=== PATIENT | female | born 1935 | race Caucasian/White ===

== ENCOUNTER 2021-07-25 11:59 | Day surgery (SDC) | payer OTHER ==
--- NOTE | 2021-07-22 14:30 | RAD REPORT ---
EXAM DESCRIPTION: Bert Downs And Lady (2 Views)07/22/2021 2:23 pm CLINICAL HISTORY: Preop for cardiac catheterization COMPARISON: None FINDINGS: The lungs appear clear of acute infiltrate. The heart is borderline enlarged. Pacemaker leads in place Moderate compression deformity involves a lower thoracic vertebral body
[2021-07-22 15:13] LABS: Absolute Lymphocytes (CBC) 1.9 K/uL (0.7-4.9); Basophils % 0.9 % (0-1.3); Hematocrit 42.2 % (36.0-45.0); Lymphocytes % 26.2 % (15.3-44.8); MPV 6.9 fL (7.6-11.3); RBC Red Blood Cell Count 4.59 M/uL (3.86-4.86)
[2021-07-22 15:16] LABS: Protime INR 0.89
[~2021-07-25 11:59] MED LIST: HEPA 1000U/500MLS 2,000 UNIT/1,000 ML BAG IV ONE; LIDOCAINE 1% 20 ML MDV ONE
[2021-07-25] MEDS ORDERED: NA CHLORIDE 0.9% 500 ML ONE (13:19)
[2021-07-25] MEDS ORDERED: ATROPINE SULF 1 MG/10 ML SYR IV ONE (13:35)
[2021-07-25] MEDS ORDERED: FENTANYL CITR 100 MCG/2 ML ONE (13:35)
[2021-07-25] MEDS ORDERED: VERAPAMIL HCL 10 MG/4 ML VIAL IV ONE (13:35)
[2021-07-25] MEDS ORDERED: HEPARIN 5000 UNIT/ML 1 ML VIAL ONE (13:35)
[2021-07-25] MEDS ORDERED: MIDAZOLAM HCL 2 MG/2 ML INJ ONE (13:35)
[2021-07-25] MEDS ORDERED: CLOPIDOGREL 75 MG TABLET ONE (14:09)
[2021-07-25] MEDS ORDERED: REGADENOSON 0.4 MG/5 ML SYR IV ONE ×2 (14:17→14:26)
[2021-07-25] MEDS ORDERED: ONDANSETRON 4 MG/2 ML VIAL ONE ×2 (14:26→20:16)
[2021-07-25] MEDS ORDERED: HEPA 1000U/500MLS 1,000 UNIT/500 ML BAG IV ONE (14:33)
[2021-07-25] MEDS ORDERED: HYDRALAZINE HCL 20 MG/ML VIAL ONE (19:25)
[2021-07-25 21:02] VITALS: O2SAT 95
[2021-07-25 21:38] VITALS: BMI 29.7
[2021-07-26] MEDS ORDERED: NITROGLYCERIN 0.4 MG/TAB SL PRN (00:13)
[2021-07-26] MEDS ORDERED: HYDRALAZINE HCL 20 MG/ML VIAL IV PRN (00:13)
[2021-07-26] MEDS ORDERED: ACETAMINOPHEN 325 MG TABLET PO PRN (00:13)
[2021-07-26] MEDS ORDERED: ONDANSETRON 4 MG/2 ML VIAL IV PRN (00:13)
--- NOTE | 2021-07-26 02:15 | OP ---
Date of Procedure: 07/25/2021 Surgeon: JOSE MIRAMONTES Procedure Performed: 1.Selective coronary angiogram. 2.FFR of the LAD is severe mid to distal disease, which was significant at 0.75, status post PCI usi ng 2.75 x 60 mm Synergy drug-eluting stent overlapped distally using a 2.75 x 24 mm Synergy drug-elut ing stent, post dilated the whole stent rbtmqjru-gx-orizpo edge using a 3.0 x 15 mm NC balloon. 3.PCI of the mid LAD as outlined above. 4.PCI of proximal LAD, probably catheter induced dissection, used a 4.0 x 24 mm Synergy drug-elutin g stent overlapped with the mid-LAD stent and all the way to the ostium to seal the dissections. 5.FFR of the OM1 mid moderate stenosis, was insignificant at 0.87. Complications: None. Bleeding: Less than 10 mL. Description Of Procedure: After risks, benefits, and alternatives were explained, the patient agreed to the procedure and signed informed consent. Patient was brought in the Cardiac Catheterization La boratory, prepped and draped in usual sterile fashion. Then, access to the right radial artery using pediatric micropuncture kit to place a 6-Citizen [place] slender sheath and I took a 5-[place] Schulter 4.[address] into the aortic root, engaged left main and RCA, took standard views and then moved to the interv entional part. Intervention Details: We gave 600 Plavix and systemic heparin to ensure ACT level above 250. Then, I took the Comet wire into the aortic root to equalize pressures and this was done through the 6-Fren ch Ikari 3.5 left, that engaged the left main and then we took the wire across the stenosis and place d into the distal LAD. FFR was done and it was significant at 0.76. The artery is diffusely disease d. Initially attempted to stent just distal to the stent, where it appears to be the tightness and t he tight spot, and then there was another area mid to distal LAD that was significantly tight as well , so we overlapped it with another stent 2.75 x 24 mm and then post dilated the whole stent proximal to the distal edge using 0 x 15 mm NC balloon. Upon reviewed, there was dissection in the proximal portion of the LAD. So, placed a 4.0 x 24 mm Synergy drug-eluting stent to cover the dissection, ove rlapped with the mid LAD stent with excellent end results and no complications. The Comet wire was t aken into the OM2 branch and FFR was done. It was insignificant at 0.87. Wires and catheter were re moved and sheath was removed and placed TR band with good hemostasis. Findings: 1.Left main luminal irregularities. It is large. 2.LAD, proximal 70%, status post PCI 4.0 x 24 mm Synergy drug-eluting stent. Then, patent mid LAD s tent with a distal edge significant stenosis. Positive FFR 0.76, status post PCI as outlined above s uccessfully. The diagonal 1 branch has a proximal 99% stenosis with a very small vessel. 3.Left circumflex is a codominant circulation. OM1 is a large vessel with ostial to proximal 80% st enosis and the OM2 has a stent that is patent. Distal to the stent is an area of 60% stenosis and FF R was 0.87, which is insignificant. The circumflex itself is very small. 4.RCA, mid long 80% lesion. Conclusion: Severe multivessel coronary artery disease as above, status post percutaneous coronary i ntervention of the LAD today. Plan: Staged PCI of OM1 and RCA in 4-6 weeks. To continue aspirin and Plavix and high-dose statin. SR/MODL Voice ID: [id number] Report ID: [id number]
[2021-07-26] MEDS ORDERED: CLOPIDOGREL 75 MG TABLET PO SCH (09:00)
[2021-07-26] MEDS ORDERED: ASPIRIN 81 MG CHEWABLE TABLET PO SCH (09:00)
[2021-07-26 09:46] VITALS: BP 153/70; TEMP 97.8
--- NOTE | 2021-07-27 12:49 | PN ---
Date of Progress Note: 07/26/2021 Ms. Willingham, 86, underwent an intervention yesterday by Dr. Alvarado to the right wrist right radial tom ry. She had a stent of her LAD and she needs more stents down the road for RCA I believe. She has a history of Myrna-Danlos syndrome. She developed significant bleeding from her right wrist, but maxim t had stopped since 11 o'clock last night. Today, her arm is bruised with ecchymosis but no complain t of pain. She has great radial pulse. I am comfortable with her going home on her home medication. She takes Nexium and she does not want to change this. I prefer to put her on Brilinta 90 b.i.d. i nstead of her Plavix, but she is coming to see Dr. Alvarado in the next day or 2. ITA/MEGAN Voice ID: [id number] Report ID: [id number]
== END 2021-07-26 10:13 | disposition home or self-care (01) ==
LOC: CCL 11:59 → 2ND 20:56 → CCL 07-26 10:13
PROVIDERS: ATTEND Internal Medicine
DX: I25.110 Atherosclerotic heart disease of native coronary artery with unstable angina pectoris (principal); I73.9 Peripheral vascular disease, unspecified; I10 Essential (primary) hypertension; E78.5 Hyperlipidemia, unspecified; E11.9 Type 2 diabetes mellitus without complications; Z95.0 Presence of cardiac pacemaker; Z87.891 Personal history of nicotine dependence; Z88.9 Allergy status to unspecified drugs, medicaments and biological substances; Z20.822 Contact with and (suspected) exposure to COVID-19
CPT/HCPCS: 93005; 85025; 80048; 36415 ×2; 85610; 85730 ×2; 71046; 93454; 93571; 93572; U0003; C1893; C1725; C9600; J0360; J1644 ×3; J2250; J3010; J2785 ×2; J7040; J2405 ×2

== ENCOUNTER 2021-10-09 06:45 | Emergency (ER) | payer OTHER ==
--- OUTSIDE RECORDS SUMMARY | 2021-10-09 06:47 | XMS REPORT | Continuity of Care Document ---
:[address] [facility] t Address [address] [place] [address] Care Team Providers Name Role Phone Jenny Attending Clinician Unavailable Payers Payer Name Policy Type Policy Number Effective Date Expiration Date S ource Problems This patient has no known problems. Allergies, Adverse Reactions, Alerts This patient has no known allergies or adverse reactions. Medications This patient has no known medications. Procedures This patient has no known procedures. Encounters Start End Encounter Admission Attending Care Care Encounter Source Date/Time Date/Time Type Type Clinicians Facility Department ID 2021-10-18 Inpatient SAE Alvarado OUTD [id number] [facility] 12:45:00 Gonzalez [id number] [facility] 2021-10-14 Inpatient SAE Kim OUTD [id number] [facility] 13:00:00 Gonzalez [id number] [facility] Results This patient has no known results.
--- NOTE | 2021-10-09 08:13 | EDPHYS ---
Physician Documentation [facility] Name: Viky Willingham Age: 86 yrs Sex: Female : 1935 Arrival Date: 10/09/2021 Time: 06:54 Bed 5 Private MD: ED Physician Tim Marquez HPI: 10/09 06:56 This 86 yrs old Female presents to ER via Unassigned with complaints of ankle kb pain s/p fall. 06:56 Details of fall: The patient fell from an upright position, while walking. Onset: The kb symptoms/episode began/occurred just prior to arrival. Associated injuries: The patient sustained anterior aspect of left ankle, painful injury, swelling. Severity of symptoms: At their worst the symptoms were moderate, in the emergency department the symptoms are unchanged. The patient has not experienced similar symptoms in the past. The patient has not recently seen a physician. Pt reports she was getting out of bed to go to the restroom and her leg gave out causing her to fall. Reports pain to left ankle only. Denies hip pain, hitting head, loc, or any other pain. Historical: - Allergies: 07:03 Demerol; bs2 07:03 Morphine; bs2 07:03 Codeine; bs2 07:03 Amoxicillin; bs2 07:03 Kepbqfe-Dhu-Ghz Reductase Inhibitors; bs2 - Immunization history:: Adult Immunizations up to date, Client reports receiving the 2nd dose of the Covid vaccine. - Social history:: Smoking status: Patient denies any tobacco usage or history of. ROS: 06:55 Constitutional: Negative for fever, chills, and weight loss. kb 06:55 MS/extremity: Positive for pain, swelling, tenderness, of the anterior aspect of left ankle and dorsum of left foot. 06:55 All other systems are negative. Exam: 06:55 Constitutional: This is a well developed, well nourished patient who is awake, alert, kb and in no acute distress. Head/Face: Normocephalic, atraumatic. ENT: Moist Mucous membranes Respiratory: Respirations even and unlabored. No increased work of breathing, no retractions or nasal flaring. Skin: Warm, dry with normal turgor. Normal color. Neuro: Awake and alert, GCS 15, oriented to person, place, time, and situation. Moves all extremities. Normal gait. Psych: Awake, alert, with orientation to person, place and time. Behavior, mood, and affect are within normal limits. 06:55 Musculoskeletal/extremity: Extremities: grossly normal except: noted in the dorsum of left foot and anterior aspect of left ankle: pain, swelling, tenderness, noted in the left knee: tenderness, ROM: Circulation is intact in all extremities. Sensation intact. Vital Signs: 06:55 BP 152 / 68 LA Sitting (auto/lg); Pulse 79 MON; Resp 18 S; Temp 97.5(O); Pulse Ox 100% bs2 on R/A; Weight 81.65 kg (R); Height 5 ft. 7 in. (170.18 cm) (R); Pain 5/10; 08:36 BP 139 / 70; Pulse 69; Resp 17; Pulse Ox 98% on R/A; jt3 06:55 Body Mass Index 28.19 (81.65 kg, 170.18 cm) bs2 MDM: 06:54 Patient medically screened. kb 06:55 Differential diagnosis: fracture, sprain, strain. Data reviewed: vital signs, nurses kb notes. 06:57 ED course: Tenderness to knee, tib fib, ankle and foot on left side. No tenderness to kb hip or femur. Pt denies hitting head. No other signs of trauma. . 08:12 Data reviewed: I have discussed the patient's presentation/case with the attending Emergency Department Physician;. Data interpreted: Pulse oximetry: on room air is 100 %. Interpretation: normal. Counseling: I had a detailed discussion with the patient and/or guardian regarding: the historical points, exam findings, and any diagnostic results supporting the discharge/admit diagnosis, radiology results, the need for outpatient follow up, a orthopedic surgeon, to return to the emergency department if symptoms worsen or persist or if there are any questions or concerns that arise at home. 10/09 06:54 Order name: Tib Fib Left XRAY; Complete Time: 08:18 kb 10/09 06:54 Order name: Foot Left 3 View XRAY; Complete Time: 08:35 kb 10/09 08:11 Order name: Walking boot; Complete Time: 08:34 kb Administered Medications: 08:34 Not Given (Patient Refused): Ibuprofen 800 mg PO once jt3 Disposition Summary: 10/09/21 08:13 Discharge Ordered Location: Home kb Condition: Stable kb Diagnosis - Displaced fracture distal left fibula kb Followup: kb - With: Emergency Department - When: As needed - Reason: Worsening of condition Followup: kb - With: Private Physician - When: 2 - 3 days - Reason: Recheck today's complaints, Continuance of care, Re-evaluation by your physician Discharge Instructions: - Discharge Summary Sheet kb - Tibial and Fibular Fractures kb Forms: - Medication Reconciliation Form kb - Thank You Letter kb - Antibiotic Education kb - Prescription Opioid Use kb Signatures: Dispatcher [employer] EDAislinn Mcnair, SERVICER TRAVEL TRAILERS-C SERVICER TRAVEL TRAILERS-Suze Velasquez, RN RN bs2 Casa Quinones RN jt3
--- NOTE | 2021-10-09 08:13 | ER ---
Nurse's Notes [facility] Name: Viky Willingham Age: 86 yrs Sex: Female : 1935 Arrival Date: 10/09/2021 Time: 06:54 Bed 5 Private MD: Diagnosis: Displaced fracture distal left fibula Presentation: 10/09 06:55 Chief complaint: Patient states: fall twisted LT ankle, pain to top of foot and ankle. bs2 Coronavirus screen: Vaccine status: Patient reports receiving the 2nd dose of the covid vaccine. Ebola Screen: No symptoms or risks identified at this time. Initial Sepsis Screen: Does the patient meet any 2 criteria? No. Patient's initial sepsis screen is negative. Does the patient have a suspected source of infection? No. Patient's initial sepsis screen is negative. Risk Assessment: Do you want to hurt yourself or someone else? Patient reports no desire to harm self or others. Onset of symptoms was October 09, 2021. 06:55 Method Of Arrival: EMS: [facility] bs2 06:55 Acuity: CARLOS 4 bs2 Triage Assessment: 06:55 General: Appears in no apparent distress. obese, well groomed, well developed, well bs2 nourished, Behavior is calm, cooperative, appropriate for age. Pain: Complains of pain in left knee and dorsum of left foot and anterior aspect of left ankle. EENT: No deficits noted. Neuro: No deficits noted. Cardiovascular: No deficits noted. Respiratory: No deficits noted. GI: No deficits noted. : No deficits noted. Derm: No deficits noted. Musculoskeletal: Reports pain in left knee and dorsum of left foot and anterior aspect of left ankle. Historical: - Allergies: 07:03 Demerol; bs2 07:03 Morphine; bs2 07:03 Codeine; bs2 07:03 Amoxicillin; bs2 07:03 Zifhphm-Hmw-Fcz Reductase Inhibitors; bs2 - Immunization history:: Adult Immunizations up to date, Client reports receiving the 2nd dose of the Covid vaccine. - Social history:: Smoking status: Patient denies any tobacco usage or history of. Screenin:58 Abuse screen: Denies threats or abuse. Denies injuries from another. Nutritional bs2 screening: No deficits noted. Tuberculosis screening: No symptoms or risk factors identified. Fall Risk None identified. Assessment: 06:58 General: Appears in no apparent distress. distressed, comfortable, obese, Behavior is bs2 calm, cooperative, appropriate for age. Pain: Complains of pain in left knee and dorsum of left foot and anterior aspect of left ankle Pain currently is 5 out of 10 on a pain scale. Musculoskeletal: Circulation, motion, and sensation intact. Capillary refill < 3 seconds, Range of motion: limited in left knee and left ankle Swelling present in left foot and left knee and anterior aspect of left ankle Tenderness present in left knee and dorsum of left foot and anterior aspect of left ankle Reports pain in left knee and dorsum of left foot and anterior aspect of left ankle. 07:16 Reassessment: RN coming on shift introduced self to patient. Pt. is alert and oriented jt3 x4 on arrival. Endorses pain in left leg. Upon examination, left leg is swollen at the left ankle and knee. The ankle pain and swelling is new and acute. The knee is pain and swelling that has developed over the last 3 weeks. Capillary refill less than 3 seconds. 07:26 Musculoskeletal: Circulation, motion, and sensation intact. Capillary refill < 3 jt3 seconds, Swelling present in left leg and left ankle and left knee. 08:35 Reassessment: Pt. stated she did not need the 800mg Ibuprofen and was not in pain at jt3 this time. Patient's daughter is on her way to pick her up. Patient denies pain at this time. Vital Signs: 06:55 BP 152 / 68 LA Sitting (auto/lg); Pulse 79 MON; Resp 18 S; Temp 97.5(O); Pulse Ox 100% bs2 on R/A; Weight 81.65 kg (R); Height 5 ft. 7 in. (170.18 cm) (R); Pain 5/10; 08:36 BP 139 / 70; Pulse 69; Resp 17; Pulse Ox 98% on R/A; jt3 06:55 Body Mass Index 28.19 (81.65 kg, 170.18 cm) bs2 ED Course: 06:54 Patient arrived in ED. kb 06:54 Aislinn Wakefield FNP-C [facility] kb 06:54 Tim Marquez MD is Attending Physician. kb 06:55 Suze Rice, RN is Primary Nurse. bs2 06:55 Arm band placed on left wrist. bs2 06:57 Triage completed. bs2 06:58 Patient has correct armband on for positive identification. Bed in low position. Call bs2 light in reach. Side rails up X2. Adult w/ patient. Pulse ox on. NIBP on. Door closed. Noise minimized. Warm blanket given. 07:49 Tib Fib Left XRAY In Process Unspecified. EDMS 07:49 Foot Left 3 View XRAY In Process Unspecified. EDMS 08:36 No provider procedures requiring assistance completed. Patient did not have IV access jt3 during this emergency room visit. 08:40 Ortho shoe applied to left foot. Ortho boot applied to left foot/leg. Sensation intact. jt3 Capillary refill less than 3 seconds. Pt. states the boot is not causing pain and is tolerable. Administered Medications: 08:34 Not Given (Patient Refused): Ibuprofen 800 mg PO once jt3 Outcome: 08:13 Discharge ordered by . kb 08:35 Discharged to home via wheelchair. jt3 08:35 Condition: good 08:35 Discharge instructions given to patient, Instructed on discharge instructions, follow up and referral plans. Demonstrated understanding of instructions. 09:13 Patient left the ED. iw Signatures: Dispatcher [employer] Aislinn Nguyen, CABLE MOCK UP ASSEMBLER-C CABLE MOCK UP ASSEMBLER-Sarah Lr, RN Suze Chapman RN RN bs2 Casa Quinones RN RN jt3
--- NOTE | 2021-10-09 08:14 | RAD REPORT ---
EXAM DESCRIPTION: RAD - Tib Fib Left - 10/09/2021 7:50 am CLINICAL HISTORY: PAIN COMPARISON: Foot Left 3 View dated 10/09/2021 FINDINGS: Obliquely oriented distal fibular fracture. No other fractures identified. No other fractu re of the tibia or fibula is identified. IMPRESSION: Obliquely oriented distal fibular fracture. Consider dedicated ankle radiograph to sho r assess the ankle mortise.
--- NOTE | 2021-10-09 08:28 | RAD REPORT ---
EXAM DESCRIPTION: RAD - Foot Left 3 View - 10/09/2021 7:50 am CLINICAL HISTORY: PAIN COMPARISON: No comparisons FINDINGS: No left foot fractures identified. Distal fibular fracture is partially imaged. IMPRESSION: No acute osseous abnormality involving the left foot. Partially imaged distal fibular fr acture .
[2021-10-09 09:19] VITALS: TEMP 97.5
[2021-10-09 09:20] VITALS: BP 139/70; O2SAT 98
== END 2021-10-09 09:13 | disposition home or self-care (01) ==
LOC: ER 06:45
DX: S82.832A Other fracture of upper and lower end of left fibula, initial encounter for closed fracture (principal); W18.30XA Fall on same level, unspecified, initial encounter; Y93.01 Activity, walking, marching and hiking; Z88.1 Allergy status to other antibiotic agents; Z88.5 Allergy status to narcotic agent; Z88.8 Allergy status to other drugs, medicaments and biological substances
CPT/HCPCS: 99284

== ENCOUNTER 2022-01-26 10:49 | Day surgery (SDC) | payer OTHER ==
[2022-01-23 16:20] LABS: Absolute Lymphocytes (CBC) 1.3 K/uL (0.7-4.9); Hematocrit 39.2 % (36.0-45.0); Lymphocytes % 23.6 % (15.3-44.8); RBC Red Blood Cell Count 4.36 M/uL (3.86-4.86)
[2022-01-23 16:22] LABS: Protime INR 0.85
--- NOTE | 2022-01-23 16:43 | RAD REPORT ---
EXAM DESCRIPTION: Bert Downs And Lat (2 Views)01/23/2022 3:49 pm CLINICAL HISTORY: Preop/hypertension COMPARISON: 2020 FINDINGS: The lungs appear clear of acute infiltrate. The heart is mildly enlarged. Pacemaker leads are in place. The aorta is tortuous/ectatic. Old compression deformity lower thoracic vertebral body IMPRESSION: No acute abnormalities displayed
[2022-01-23 17:07] LABS: Potassium 4.1 mmol/L (3.5-5.1)
--- NOTE | 2022-01-24 09:11 | EKG ---
Test Date: 2022-01-23 Test Time: 15:30:13 Casino Assistant Manager: ROSE MEASUREMENT RESULTS: Intervals: Rate: 71 IN: 234 QRSD: 128 QT: 450 QTc: 489 Ethel: P: 63 IN: 234 QRS: 2 T: 256 INTERPRETIVE STATEMENTS: Electronic atrial pacemaker Left bundle branch block Abnormal ECG Compared to ECG 07/22/2021 12:57:28 Left bundle-branch block now present AV dual-paced complex(es) or rhythm no longer present Electronically Signed On 01-24-22 09:09:15 MASTER MERCHANDISER by Lawrence Rubin
[~2022-01-26 10:49] MED LIST changes: +ASPIRIN 325 MG TAB ONE; +ATROPINE SULF 1 MG/10 ML SYR IV ONE; +CLOPIDOGREL 75 MG TABLET ONE; +FENTANYL CITR 100 MCG/2 ML ONE; +HEPARIN 10,000 UNIT/10 ML VIAL IV ONE; +HEPARIN 5000 UNIT/ML 1 ML VIAL ONE; -LIDOCAINE 1% 20 ML MDV ONE; +MIDAZOLAM HCL 2 MG/2 ML INJ ONE; +NA CHLORIDE 0.9% 500 ML ONE; +NITROGLYCERIN/D5W 25 MG/250 ML BTL IV ONE; +TICAGRELOR 90 MG TABLET PO ONE; +VERAPAMIL HCL 10 MG/4 ML VIAL IV ONE
[2022-01-26 13:44] VITALS: TEMP 97
[2022-01-26] MEDS ORDERED: ACETAMINOPHEN 325 MG TABLET ONE (16:47)
[2022-01-26 17:20] VITALS: O2SAT 94
[2022-01-26 17:59] VITALS: BP 127/88
--- NOTE | 2022-01-27 00:06 | OP ---
Date of Procedure: 01/26/2022 Surgeon: JOSE MIRAMONTES Procedure Performed: Peripheral angiogram, distal aortogram with runoff. Indication: Severe PAD. Access: Right radial artery 6-[place] closed with TR band. Complications: None. Bleeding: Less than 10 mL. Total Sedation Time: 20 minutes. Description Of Procedure: After risks, benefits, and alternatives were explained, the patient agreed to proceed and signed informed consent. The patient was brought into cardiac catheterization labora tory, prepped and draped in usual sterile fashion. Then, I gave fentanyl and Versed in incremental d oses to achieve adequate moderate sedation. Then, we accessed right radial artery using pediatric mi cropuncture kit and placed a 6-[place] slender sheath and then took a long pigtail catheter over wire into the distal aorta and performed this aortogram with runoff all the way to the feet. I then remov ed the catheter and sheath and placed TR band with good hemostasis. Findings: 1.Distal aorta, widely patent. 2.Right and left common iliac arteries that have about 20% to 30% focal stenosis. 3.Right and left common femoral arteries have diffuse 10% to 20% stenosis. 4.The left SFA is widely patent with diffuse multiple areas of 30% stenosis. Profunda is patent. 5.The right SFA has diffuse proximal 30% to 40% and then focal 70% and then 95% to 99% stenosis with slow flow and then followed by diffuse 80% stenosis. The profunda on the right side is patent. 6.Vfumc-beu-oovf flow on the left side is good with diffuse 30% to 40% stenosis in the 3-vessel runo ff and on the right side, very sluggish low flow and could not see the arteries due to the severity o f the SFA stenosis. Conclusion: Severe right SFA stenosis, diffuse and heavily calcified. Plan: Take the patient to higher level of care facility at [facility]. We will plan to access the l eft femoral artery and come up and over to the right SFA and do shock-wave lithotripsy and then follo wed by a drug-coated balloon angioplasty. Meanwhile, continue Brilinta and aspirin. SR/MODL Voice ID: [id number] Report ID: [id number]
== END 2022-01-26 18:00 | disposition home or self-care (01) ==
LOC: CCL 10:49
PROVIDERS: ATTEND Internal Medicine
DX: I70.203 Unspecified atherosclerosis of native arteries of extremities, bilateral legs (principal); I25.10 Atherosclerotic heart disease of native coronary artery without angina pectoris; I10 Essential (primary) hypertension; E11.9 Type 2 diabetes mellitus without complications; E78.5 Hyperlipidemia, unspecified; Z87.891 Personal history of nicotine dependence; Z88.0 Allergy status to penicillin; Z88.6 Allergy status to analgesic agent; Z88.8 Allergy status to other drugs, medicaments and biological substances; Z20.822 Contact with and (suspected) exposure to COVID-19
CPT/HCPCS: 93005; 85025; 80048; 36415; 85610; 85730; 84425; 71046; 36200; 75630 ×2; U0003; C1893; J1644 ×2; J2250; J3010; J7040

== ENCOUNTER 2022-10-30 09:37 | Emergency (ER) | payer OTHER ==
--- OUTSIDE RECORDS SUMMARY | 2022-10-30 09:41 | XMS REPORT | Continuity of Care Document ---
:1935 Author Organization [facility] t Address [address] [place] [place] [address] Care Team Providers Name Role Phone Gonzalez Alvarado Attending Clinician Unavailable Nasir Mustafa Attending Clinician Unavailable Gonzalez Alvarado Admitting Clinician Unavailable [place] Admitting Clinician Unavailable Payers Payer Name Policy Type Policy Number Effective Date Expiration Date S ource Problems This patient has no known problems. Allergies, Adverse Reactions, Alerts Allergy Allergy Status Severity Reaction(s) Onset Inactive Treating Comm ents Source Name Type Date Date Clinician morphine DA Active U NAUSEA 2020-11 [facility] 2-10 Clear 00:00: Elkins 00 [facility] BELLPEPP DA Active MO STOMACH PAIN 2020-11 HC A ERS 2-10 Clear 00:00: Elkins 00 [facility] metoclop DA Active U ANXIOUS H[facility] ramide 7-25 Clear HCl 00:00: Elkins [facility] Statins- DA Active U MUSCLE HCA HMG-CoA PAIN,DIZZY 7-25 Clear Reductas 00:00: Elkins e 00 [facility] codeine DA Active [place] NAUSEA HCA 4-30 Clear 00:00: Elkins 00 [facility] Medications This patient has no known medications. Procedures Procedure Date / Time Performed Performing Clinician Kathy bernabe [id number] 2021-11-09 00:00:00 TIFFANIE DYSON [facility] [id number] 2021-11-08 00:00:00 IVANA DYSON [facility] [id number] 2021-11-08 00:00:00 IVANA DYSON [facility] [id number] 2021-11-08 00:00:00 IVANA [facility] Encounters Start End Encounter Admission Attending Care Care Encounter Source Date/Time Date/Time Type Type Clinicians Facility Department ID 2022-03-27 Inpatient KIEL KimCL OUTD [id number] [facility] 09:30:00 Gonzalez 67 [facility] 2021-12-21 Outpatient STLMLC STLC [id number] Common 14:33:17 [facility] 2021-11-04 Inpatient KIEL KimCL OUTD [id number] [facility] 10:30:00 Gonzalez 90 [facility] 2021-11-08 2021-11-10 Inpatient Nasir Cornejo HCACL INTE [id number] [facility] 18:29:00 12:51:[address] [place] [address] 2021-11-04 2021-11-04 Outpatient KIEL KimCL 3DAY [id number] [facility] 08:00:00 23:00:00 Gonzalez 87 [facility] Results Test Description Test Time Test Comments Results Result Comments Source MAGNESIUM 2021-11-10 05:39:00 Test Item Value Reference Range Interpretation Comme nts MAGNESIUM (test code = MAG) 1.93 mg/dL 1.80-2.40 BASIC METABOLIC [id number] 04:49:00 Test Item Value Reference Range Interpretation Comments SODIUM (test code = NA) 145 mEq/L 134-147 N POTASSIUM (test code = 3.6 mEq/L 3.4-5.0 N K) CHLORIDE (test code = 109 mEq/L 100-108 H CL) CARBON DIOXIDE (test 25 mEq/l 21-33 N code = CO2) ANION GAP (test code = 14 0-20 N GAP) GLUCOSE (test code = 103 mg/dL 70-110 GLU) BLOOD UREA NITROGEN 12 mg/dL 7-18 N (test code = BUN) GLOMERULAR FILTRATION 59.2 70-80 L Units of measure = RATE (test code = GFR) ml/mi n/1.73 m2 CREATININE (test code = 0.9 mg/dL 0.6-1.3 N CREAT) CALCIUM (test code = 8.2 mg/dL 8.0-10.5 N CA) CBC W/AUTO [id number] 04:36:00 Test Item Value Reference Range Interpretation Comments WHITE BLOOD CELL (test code = 7.1 x10 3/uL 4.5-11.0 N WBC) RED BLOOD CELL (test code = 3.70 x10 6/uL 3.54-5.02 N RBC) HEMOGLOBIN (test code = HGB) 11.3 g/dL 11.0-15.0 N HEMATOCRIT (test code = HCT) 34.9 % 33.0-45.0 N MEAN CELL VOLUME (test code = 94.3 fL 81.0-99.0 N MCV) MEAN CELL HGB (test code = MCH) 30.5 pg 27.0-33.0 N MEAN CELL HGB CONCETRATION 32.4 g/dL 33.0-37.0 L (test code = MCHC) RED CELL DISTRIBUTION WIDTH CV 12.7 % 11.5-14.5 N (test code = RDW) RED CELL DISTRIBUTION WIDTH SD 43.5 fL 37.0-54.0 N (test code = RDW-SD) PLATELET COUNT (test code = 247 x10 3/uL 150-400 N PLT) MEAN PLATELET VOLUME (test code 9.2 fL 7.0-9.0 H = MPV) NEUTROPHIL % (test code = NT%) 69.5 % 56.0-77.0 N IMMATURE GRANULOCYTE % (test 0.6 % 0.0-2.0 N code = IG%) LYMPHOCYTE % (test code = LY%) 15.7 % 14.0-32.0 N MONOCYTE % (test code = MO%) 9.4 % 4.8-9.0 H EOSINOPHIL % (test code = EO%) 4.1 % 0.3-3.7 H BASOPHIL % (test code = BA%) 0.7 % 0.0-2.0 N NUCLEATED RBC % (test code = 0.0 % 0-0 N NRBC%) NEUTROPHIL # (test code = NT#) 4.90 x10 3/uL 2.0-7.6 N IMMATURE GRANULOCYTE # (test 0.04 x10 3/uL 0.00-0.03 H code = IG#) LYMPHOCYTE # (test code = LY#) 1.11 x10 3/uL 1.0-3.8 N MONOCYTE # (test code = MO#) 0.66 x10 3/uL 0.1-0.8 N EOSINOPHIL # (test code = EO#) 0.29 x10 3/uL 0.0-0.2 H BASOPHIL # (test code = BA#) 0.05 x10 3/uL 0.0-0.2 N NUCLEATED RBC # (test code = 0.00 x10 3/uL 0.0-0.1 N NRBC#) MANUAL DIFF REQUIRED (test code NO = MDIFF) COVID 19 Asymptomatic IH [id number] 09:39:00 Test Item Value Reference Range Interpretation Comments COVID 19 Asymptomatic Negative Negative A nega tive result is IH AG (test code = presumpti ve and should COVNONPUIAG) be confirmedwit h an FDA authorized mole cular assay, if neces jeana forpatient turner gement.A positive result does not rule out co-inf ections withother patho gens.This test detects lex th viable (live) and non-viable,SARS -CoV, and SARS-CoV-2. Andrew t performance dep ends on theamount of vi elyssa (antigen) in th e sample.This andrew t has not been FDA cleare d or approved; the t est hasbeen authori zed by FDA under an Em ergency Use Authorizati on(EUA) for use by labo ratories certified under the CLIA thatmeet the requirements to perform moderate, high or waivedcomplexit y tests. BASIC METABOLIC [id number] 03:11:00 Test Item Value Reference Range Interpretation Comments SODIUM (test code = NA) 141 mEq/L 134-147 N POTASSIUM (test code = 3.7 mEq/L 3.4-5.0 N K) CHLORIDE (test code = 110 mEq/L 100-108 H CL) CARBON DIOXIDE (test 24 mEq/l 21-33 N code = CO2) ANION GAP (test code = 11 0-20 N GAP) GLUCOSE (test code = 140 mg/dL 70-110 H GLU) BLOOD UREA NITROGEN 13 mg/dL 7-18 (test code = BUN) GLOMERULAR FILTRATION 59.2 70-80 L Units of measure = RATE (test code = GFR) ml/mi n/1.73 m2 CREATININE (test code = 0.9 mg/dL 0.6-1.3 N CREAT) CALCIUM (test code = 7.8 mg/dL 8.0-10.5 L CA) LIPID PROFILE (CORONARY RISK)2021-11-09 03:11:00 Test Item Value Reference Range Interpretation Comments TRIGLYCERIDES (test 159 mg/dL 40-150 H code = TRIG) CHOLESTEROL (test 157 mg/dL <200 code = CHOL) CHOLESTEROL/HDL 5.75 RATIO 3.27-4.44 H RISK ASSOCIA JANAE WITH RATIO (test code = CHOL/HDL RATIOS: RISK CHOLHDL) MALE FEMALE1/2 AVERAGE 3.43 3.27AVERAG E 4.97 4.442X AVERAGE 9.55 7.053X AVERAGE 23.39 11.04 NOTE THAT THE REFERENCE VALUE IS RELATEDTO RISK LEVELS RECOMMENDED BY THE NATL.HEART, JEANNINE G, AND BLOOD INST. HDL CHOLESTEROL 27.3 mg/dL 39-96 L (test code = HDL) LIPOPROTEIN LDL 126.9 mg/dL 0-100 H <100 OPTIMAL 100-129 (test code = LDL) NEAR OPTIM AL/ABOVE [id number] 89 HIGH>LO=045 DARIA Y HIGH*Guidelines provided by the National Choles terol EducationProgra m Adult Treatment Panel III [id number] 03:11:00 Test Item Value Reference Range Interpretation Comments PHOSPHOROUS (test code = PHOS) 4.0 MG/DL 2.5-4.9 N [id number] 03:11:00 Test Item Value Reference Range Interpretation Comments MAGNESIUM (test code = MAG) 1.67 mg/dL 1.80-2.40 L CBC W/AUTO [id number] 03:03:00 Test Item Value Reference Range Interpretation Comments WHITE BLOOD CELL (test code = 8.2 x10 3/uL 4.5-11.0 N WBC) RED BLOOD CELL (test code = 3.70 x10 6/uL 3.54-5.02 N RBC) HEMOGLOBIN (test code = HGB) 11.1 g/dL 11.0-15.0 N HEMATOCRIT (test code = HCT) 34.6 % 33.0-45.0 N MEAN CELL VOLUME (test code = 93.5 fL 81.0-99.0 MCV) MEAN CELL HGB (test code = MCH) 30.0 pg 27.0-33.0 N MEAN CELL HGB CONCETRATION 32.1 g/dL 33.0-37.0 L (test code = MCHC) RED CELL DISTRIBUTION WIDTH CV 12.5 % 11.5-14.5 N (test code = RDW) RED CELL DISTRIBUTION WIDTH SD 42.6 fL 37.0-54.0 N (test code = RDW-SD) PLATELET COUNT (test code = 262 x10 3/uL 150-400 N PLT) MEAN PLATELET VOLUME (test code 8.9 fL 7.0-9.0 N = MPV) NEUTROPHIL % (test code = NT%) 80.4 % 56.0-77.0 H IMMATURE GRANULOCYTE % (test 0.4 % 0.0-2.0 N code = IG%) LYMPHOCYTE % (test code = LY%) 13.0 % 14.0-32.0 L MONOCYTE % (test code = MO%) 5.5 % 4.8-9.0 N EOSINOPHIL % (test code = EO%) 0.2 % 0.3-3.7 L BASOPHIL % (test code = BA%) 0.5 % 0.0-2.0 N NUCLEATED RBC % (test code = 0.0 % 0-0 N NRBC%) NEUTROPHIL # (test code = NT#) 6.61 x10 3/uL 2.0-7.6 N IMMATURE GRANULOCYTE # (test 0.03 x10 3/uL 0.00-0.03 N code = IG#) LYMPHOCYTE # (test code = LY#) 1.07 x10 3/uL 1.0-3.8 N MONOCYTE # (test code = MO#) 0.45 x10 3/uL 0.1-0.8 N EOSINOPHIL # (test code = EO#) 0.02 x10 3/uL 0.0-0.2 N BASOPHIL # (test code = BA#) 0.04 x10 3/uL 0.0-0.2 N NUCLEATED RBC # (test code = 0.00 x10 3/uL 0.0-0.1 N NRBC#) MANUAL DIFF REQUIRED (test code NO = MDIFF) GLUCOSE [id number] 20:16:00 Test Item Value Reference Range Interpretation Comments GLUCOSE BEDSIDE (test 158 MG/DL 70-110 H [facility] med by certified code = GLUBED) incubator machine operator at [facility] COMPREHENSIVE METABOLIC [id number] 19:53:00 Test Item Value Reference Range Interpretation Comments SODIUM (test code = NA) 140 mEq/L 134-147 N POTASSIUM (test code = 4.0 mEq/L 3.4-5.0 N K) CHLORIDE (test code = 108 mEq/L 100-108 N CL) CARBON DIOXIDE (test 23 mEq/l 21-33 N code = CO2) ANION GAP (test code = 13 0-20 N GAP) GLUCOSE (test code = 149 mg/dL 70-110 H GLU) BLOOD UREA NITROGEN 10 mg/dL 7-18 N (test code = BUN) GLOMERULAR FILTRATION 59.2 70-80 L Units of measure = RATE (test code = GFR) ml/mi n/1.73 m2 CREATININE (test code = 0.9 mg/dL 0.6-1.3 N CREAT) TOTAL PROTEIN (test 6.9 g/dL 6.4-8.2 N code = PROT) ALBUMIN (test code = 3.20 g/dL 3.4-5.0 L ALB) CALCIUM (test code = 8.4 mg/dL 8.0-10.5 N CA) BILIRUBIN TOTAL (test 0.30 mg/dL 0.0-1.0 N code = BILT) SGOT/AST (test code = 42 IUnit/L 15-37 H AST) SGPT/ALT (test code = 19 IUnit/L 30-65 L ALT) ALKALINE PHOSPHATASE 133 IUnit/L 20-125 H TOTAL (test code = ALKP) CBC W/AUTO [id number] 19:53:00 Test Item Value Reference Range Interpretation Comments WHITE BLOOD CELL (test code = 8.9 x10 3/uL 4.5-11.0 N WBC) RED BLOOD CELL (test code = 4.09 x10 6/uL 3.54-5.02 N RBC) HEMOGLOBIN (test code = HGB) 12.4 g/dL 11.0-15.0 N HEMATOCRIT (test code = HCT) 39.6 % 33.0-45.0 N MEAN CELL VOLUME (test code = 96.8 fL 81.0-99.0 N MCV) MEAN CELL HGB (test code = MCH) 30.3 pg 27.0-33.0 N MEAN CELL HGB CONCETRATION 31.3 g/dL 33.0-37.0 L (test code = MCHC) RED CELL DISTRIBUTION WIDTH CV 12.6 % 11.5-14.5 N (test code = RDW) RED CELL DISTRIBUTION WIDTH SD 44.9 fL 37.0-54.0 N (test code = RDW-SD) PLATELET COUNT (test code = 289 x10 3/uL 150-400 N PLT) MEAN PLATELET VOLUME (test code 9.0 fL 7.0-9.0 N = MPV) NEUTROPHIL % (test code = NT%) 82.2 % 56.0-77.0 H IMMATURE GRANULOCYTE % (test 0.4 % 0.0-2.0 N code = IG%) LYMPHOCYTE % (test code = LY%) 11.6 % 14.0-32.0 L MONOCYTE % (test code = MO%) 3.7 % 4.8-9.0 L EOSINOPHIL % (test code = EO%) 1.3 % 0.3-3.7 N BASOPHIL % (test code = BA%) 0.8 % 0.0-2.0 N NUCLEATED RBC % (test code = 0.0 % 0-0 N NRBC%) NEUTROPHIL # (test code = NT#) 7.32 x10 3/uL 2.0-7.6 N IMMATURE GRANULOCYTE # (test 0.04 x10 3/uL 0.00-0.03 H code = IG#) LYMPHOCYTE # (test code = LY#) 1.03 x10 3/uL 1.0-3.8 N MONOCYTE # (test code = MO#) 0.33 x10 3/uL 0.1-0.8 N EOSINOPHIL # (test code = EO#) 0.12 x10 3/uL 0.0-0.2 N BASOPHIL # (test code = BA#) 0.07 x10 3/uL 0.0-0.2 N NUCLEATED RBC # (test code = 0.00 x10 3/uL 0.0-0.1 N NRBC#) MANUAL DIFF REQUIRED (test code NO = MDIFF) PROTHROMBIN [id number] 19:44:00 Test Item Value Reference Range Interpretation Comments PROTHROMBIN TIME 12.5 SECONDS 9.3-12.9 N PATIENT (test code = PTP) INTERNATIONAL NORMAL 1.1 0.8-1.2 N TARGET INR BY RATIO (test code = INDICATIO N Indication INR) INR1. Prophylax is of venous thrombos is 2.0 - 3.0 (orthoped ic surgery), Proph ylaxis of venous throm bosis (other than hig h-risk surgery), Treat ment of Deep Vein Thrombosis/Pulm onary Embolism, Preve ntion of systemic emb olism - Tissue heart va lves, Acute Myocardia l Infarction (to prevent systemic emboli sm), Valvular heart disease, Atrial Fibrillation, Bileaflet mecha nical valve in aortic position.2. Mec hanical prosthetic valv es (high risk), 2. 5 - 3.5 Presence of Lup us Anticoagulant o r Antiphospholipi d Antibodies, Pre vention of systemic emb olism - Acute Myocardia l Infarction (to prevent recurrent infar ct). BASIC METABOLIC [id number] 17:07:00 Test Item Value Reference Range Interpretation Comments SODIUM (test code = NA) 141 mEq/L 134-147 N POTASSIUM (test code = 4.1 mEq/L 3.4-5.0 N K) CHLORIDE (test code = 108 mEq/L 100-108 N CL) CARBON DIOXIDE (test 25 mEq/l 21-33 N code = CO2) ANION GAP (test code = 12 0-20 N GAP) GLUCOSE (test code = 139 mg/dL 70-110 H GLU) BLOOD UREA NITROGEN 13 mg/dL 7-18 N (test code = BUN) GLOMERULAR FILTRATION 59.2 70-80 L Units of measure = RATE (test code = GFR) ml/mi n/1.73 m2 CREATININE (test code = 0.9 mg/dL 0.6-1.3 N CREAT) CALCIUM (test code = 8.3 mg/dL 8.0-10.5 N CA) CBC W/AUTO [id number] 17:01:00 Test Item Value Reference Range Interpretation Comments WHITE BLOOD CELL (test code = 9.2 x10 3/uL 4.5-11.0 N WBC) RED BLOOD CELL (test code = 4.05 x10 6/uL 3.54-5.02 N RBC) HEMOGLOBIN (test code = HGB) 12.2 g/dL 11.0-15.0 N HEMATOCRIT (test code = HCT) 38.1 % 33.0-45.0 N MEAN CELL VOLUME (test code = 94.1 fL 81.0-99.0 N MCV) MEAN CELL HGB (test code = MCH) 30.1 pg 27.0-33.0 N MEAN CELL HGB CONCETRATION 32.0 g/dL 33.0-37.0 L (test code = MCHC) RED CELL DISTRIBUTION WIDTH CV 12.5 % 11.5-14.5 N (test code = RDW) RED CELL DISTRIBUTION WIDTH SD 43.7 fL 37.0-54.0 N (test code = RDW-SD) PLATELET COUNT (test code = 295 x10 3/uL 150-400 N PLT) MEAN PLATELET VOLUME (test code 8.9 fL 7.0-9.0 N = MPV) NEUTROPHIL % (test code = NT%) 74.0 % 56.0-77.0 N IMMATURE GRANULOCYTE % (test 0.6 % 0.0-2.0 N code = IG%) LYMPHOCYTE % (test code = LY%) 14.9 % 14.0-32.0 N MONOCYTE % (test code = MO%) 6.8 % 4.8-9.0 N EOSINOPHIL % (test code = EO%) 3.1 % 0.3-3.7 N BASOPHIL % (test code = BA%) 0.6 % 0.0-2.0 N NUCLEATED RBC % (test code = 0.0 % 0-0 N NRBC%) NEUTROPHIL # (test code = NT#) 6.82 x10 3/uL 2.0-7.6 N IMMATURE GRANULOCYTE # (test 0.06 x10 3/uL 0.00-0.03 H code = IG#) LYMPHOCYTE # (test code = LY#) 1.38 x10 3/uL 1.0-3.8 N MONOCYTE # (test code = MO#) 0.63 x10 3/uL 0.1-0.8 N EOSINOPHIL # (test code = EO#) 0.29 x10 3/uL 0.0-0.2 H BASOPHIL # (test code = BA#) 0.06 x10 3/uL 0.0-0.2 N NUCLEATED RBC # (test code = 0.00 x10 3/uL 0.0-0.1 N NRBC#) MANUAL DIFF REQUIRED (test code NO = MDIFF) GLUCOSE [id number] 14:39:00 Test Item Value Reference Range Interpretation Comments GLUCOSE BEDSIDE (test 125 MG/DL 70-110 H [facility] med by certified code = GLUBED) incubator machine operator at [facility] [id number] 14:03:00 Test Item Value Reference Range Interpretation Comments ACT-ISTAT (test code 315 SEC 74-137 H Perform ed by certified = ACTI) incubator machine operator at [facility] [id number] 13:12:00 Test Item Value Reference Range Interpretation Comments ACT-ISTAT (test code 416 SEC 74-137 H Perform ed by certified = ACTI) incubator machine operator at [facility] BASIC METABOLIC [id number] 11:57:00 Test Item Value Reference Range Interpretation Comments SODIUM (test code = NA) 141 mEq/L 134-147 N POTASSIUM (test code = 4.4 mEq/L 3.4-5.0 N K) CHLORIDE (test code = 107 mEq/L 100-108 N CL) CARBON DIOXIDE (test 27 mEq/l 21-33 N code = CO2) ANION GAP (test code = 11 0-20 N GAP) GLUCOSE (test code = 132 mg/dL 70-110 H GLU) BLOOD UREA NITROGEN 15 mg/dL 7-18 N (test code = BUN) GLOMERULAR FILTRATION 42.5 70-80 L Units of measure = RATE (test code = GFR) ml/mi n/1.73 m2 CREATININE (test code = 1.2 mg/dL 0.6-1.3 N CREAT) CALCIUM (test code = 8.6 mg/dL 8.0-10.5 N CA) PROTHROMBIN [id number] 11:52:00 Test Item Value Reference Range Interpretation Comments PROTHROMBIN TIME 11.5 SECONDS 9.3-12.9 N PATIENT (test code = PTP) INTERNATIONAL NORMAL 1.0 0.8-1.2 N TARGET INR BY RATIO (test code = INDICATIO N Indication INR) INR1. Prophylax is of venous thrombos is 2.0 - 3.0 (orthoped ic surgery), Proph ylaxis of venous throm bosis (other than hig h-risk surgery), Treat ment of Deep Vein Thrombosis/Pulm onary Embolism, Preve ntion of systemic emb olism - Tissue heart va lves, Acute Myocardia l Infarction (to prevent systemic emboli sm), Valvular heart disease, Atrial Fibrillation, Bileaflet mecha nical valve in aortic position.2. Mec hanical prosthetic valv es (high risk), 2. 5 - 3.5 Presence of Lup us Anticoagulant o r Antiphospholipi d Antibodies, Pre vention of systemic emb olism - Acute Myocardia l Infarction (to prevent recurrent infar ct). CBC W/AUTO [id number] 11:41:00 Test Item Value Reference Range Interpretation Comments WHITE BLOOD CELL (test code = 8.2 x10 3/uL 4.5-11.0 N WBC) RED BLOOD CELL (test code = 4.22 x10 6/uL 3.54-5.02 N RBC) HEMOGLOBIN (test code = HGB) 12.8 g/dL 11.0-15.0 N HEMATOCRIT (test code = HCT) 40.0 % 33.0-45.0 N MEAN CELL VOLUME (test code = 94.8 fL 81.0-99.0 N MCV) MEAN CELL HGB (test code = MCH) 30.3 pg 27.0-33.0 N MEAN CELL HGB CONCETRATION 32.0 g/dL 33.0-37.0 L (test code = MCHC) RED CELL DISTRIBUTION WIDTH CV 12.8 % 11.5-14.5 N (test code = RDW) PLATELET COUNT (test code = 344 x10 3/uL 150-400 N PLT) NEUTROPHIL % (test code = NT%) 72.3 % 56.0-77.0 N LYMPHOCYTE % (test code = LY%) 15.3 % 14.0-32.0 N NEUTROPHIL # (test code = NT#) 5.94 x10 3/uL 2.0-7.6 N LYMPHOCYTE # (test code = LY#) 1.26 x10 3/uL 1.0-3.8 N MANUAL DIFF REQUIRED (test code NO = MDIFF) RED CELL DISTRIBUTION WIDTH SD 44.0 fL 37.0-54.0 N (test code = RDW-SD) MEAN PLATELET VOLUME (test code 8.8 fL 7.0-9.0 N = MPV) IMMATURE GRANULOCYTE % (test 0.4 % 0.0-2.0 N code = IG%) MONOCYTE % (test code = MO%) 6.2 % 4.8-9.0 N EOSINOPHIL % (test code = EO%) 4.9 % 0.3-3.7 H BASOPHIL % (test code = BA%) 0.9 % 0.0-2.0 N NUCLEATED RBC % (test code = 0.0 % 0-0 N NRBC%) IMMATURE GRANULOCYTE # (test 0.03 x10 3/uL 0.00-0.03 N code = IG#) MONOCYTE # (test code = MO#) 0.51 x10 3/uL 0.1-0.8 N EOSINOPHIL # (test code = EO#) 0.40 x10 3/uL 0.0-0.2 H BASOPHIL # (test code = BA#) 0.07 x10 3/uL 0.0-0.2 N NUCLEATED RBC # (test code = 0.00 x10 3/uL 0.0-0.1 N NRBC#) - XR CHEST 2 [id number] 00:00:[address] [facility] : 1935 Sex: F FAX: Gonzalez Farnsworth MD [phone] [place]: [address]: PRE Name: JESSICA GARCIA [facility] Shruthi Elkins : 1935 Age/S: 86/F [address] Unit #: [id number] Loc: [place] [address] Phys: Gonzalez Alvarado MD Acct: [id number] Dis Date: Status: PRE SDC PHONE #: [phone] Exam Date: 11/04/20211250 FAX #: [phone] Reason: PREOP EXAMS: CPT CODE: [id number] XR CHEST 2 V [id number] PROCEDURE INFORMATION: Exam: XR Chest Exam date and time: 11/04/2021 12:28 PM Age: 86 years old Clinical indication: Pre-operative exam; Respiratory screening exam; Additional info: Preop TECHNIQUE: Imaging protocol: XR of the chest. Views: 2 views. COMPARISON: No relevant prior studies available. FINDINGS: Tubes, catheters and devices: A dual-lead pacemaker is present with the proximal lead projected over the region of the right atrium and the distal lead tip projected in the vicinity of the right ventricular apex. Lungs: See "Pleural spaces" finding. Pleural spaces: No gross active pleural, parenchymal, or mediastinal abnormalities noted. Heart/Mediastinum: See "Pleural spaces" finding. Bones/joints: A significant 50% wedge compression fracture is demonstrated of the approximate L1 level-age unknown. Soft tissues: No acute abnormality in the chest. IMPRESSION: 1. A significant 50% wedge compression fracture is demonstrated of the approximate L1 level-age unknown. 2. No acute abnormality in the chest. at 1256 Reported and signed by: Rosy Jacobs M.D. CC: Gonzalez Alvarado MD Technologist: RT Patricia(R) Trnscrd Date/Time/By: 11/04/2021 ([id number]) : By: [email or web address] Orig Print D/T: S: 11/04/2021 ([id number]) PAGE 1 Signed Report
[2022-10-30 10:54] LABS: Hematocrit 41.8 % (36.0-45.0); Lymphocytes % 14.7 % (15.3-44.8); MPV 6.9 fL (7.6-11.3); RBC Red Blood Cell Count 4.45 M/uL (3.86-4.86)
[2022-10-30 11:09] LABS: Albumin 3.2 g/dL (3.4-5.0); Bilirubin Total 0.3 mg/dL (0.2-1.0); Potassium 3.8 mmol/L (3.5-5.1); Protein, Total 7.5 g/dL (6.4-8.2)
--- NOTE | 2022-10-30 13:06 | RAD REPORT ---
EXAM DESCRIPTION: RAD - Knee Left 2 View - 10/30/2022 11:55 am CLINICAL HISTORY: PAIN COMPARISON: No comparisons FINDINGS: Bones are osteopenic. No fracture or pathologic bone process identifiable.Joint space narr owing is present more prominent in the medial compartment. There are medial and lateral compartment s mall marginal spurs. Small joint effusion is present. There is minimal spurring along the articular m argins of the patella. Meniscal degenerative calcifications are present. Arterial tree calcifications are present. No suspicious soft tissue finding. IMPRESSION: Osteopenic and degenerative changes of the left knee as detailed. No acute bone finding. Small joint effusion. Clinical concerns for internal derangement or occult bony injury could be further assessed with follo w-up outpatient MR imaging.
--- NOTE | 2022-10-30 13:07 | RAD REPORT ---
EXAM DESCRIPTION: RAD - Knee Right 2 View - 10/30/2022 11:55 am CLINICAL HISTORY: PAIN, fall COMPARISON: Knee Left 2 View dated 10/30/2022 FINDINGS: Underlying osteopenic changes are present. No acute or pathologic change to the femur, tib ia or fibula. There is a transverse fracture of the patella with approximately 10 mm distraction. No large joint effusion or lipoma hemarthrosis identifiable. Medial and lateral compartments are narrowed slightly. There is degenerative meniscal calcification. Patella femoral joint space is probably narrowed as well. Dense arterial tree calcifications are present. No suspicious soft tissue finding. IMPRESSION: Transverse fracture of the patella with no measurable joint effusion or lipohemarthrosis . Underlying osteopenic and degenerative changes to the knee joint as detailed.
--- NOTE | 2022-10-30 13:15 | RAD REPORT ---
EXAM DESCRIPTION: RAD - Pelvis - 10/30/2022 11:55 am CLINICAL HISTORY: weakness COMPARISON: No comparisons TECHNIQUE: AP imaging of the pelvis was obtained. FINDINGS: Osteopenic changes are evident. SI joint degenerative changes are mild. Fracture of the sa cral ala not identifiable. Fracture of the pelvis is not seen. There are no pathologic bone changes i dentified. No suspicious findings in either proximal femur. Bilateral hip joint degenerative changes are present . IMPRESSION: Osteopenic and degenerative changes to the pelvis and bilateral hip joints. No acute fracture or other acute finding identifiable.
--- NOTE | 2022-10-30 14:50 | ER ---
Nurse's Notes [facility] Name: Viky Willingham Age: 87 yrs Sex: Female : 1935 Arrival Date: 10/30/2022 Time: 09:39 Bed 2 Private MD: Diagnosis: Weakness;History of falling;Fall on same level, unspecified;Discharge to [facility] Presentation: 10/30 09:39 Chief complaint: EMS states: FELL TO KNEES WHILE TRANSFERRING TO TOILET WITH DAUGHTER, bp STRUCK R KNEE. Coronavirus screen: At this time, the client does not indicate any symptoms associated with coronavirus-19. Ebola Screen: No symptoms or risks identified at this time. Initial Sepsis Screen: Does the patient meet any 2 criteria? No. Patient's initial sepsis screen is negative. Does the patient have a suspected source of infection? No. Patient's initial sepsis screen is negative. Risk Assessment: Do you want to hurt yourself or someone else? Patient reports no desire to harm self or others. Onset of symptoms was October 30, 2022 at 09:00. Care prior to arrival: Glucose check: 158. 09:39 Method Of Arrival: EMS: [facility] bp 09:39 Acuity: CARLOS 3 bp Triage Assessment: 09:45 General: Appears in no apparent distress. uncomfortable, obese, Behavior is calm, bp cooperative, appropriate for age. Pain: Complains of pain in right knee and left knee. EENT: No deficits noted. Neuro: No deficits noted. Cardiovascular: No deficits noted. Respiratory: No deficits noted. GI: No signs and/or symptoms were reported involving the gastrointestinal system. : No signs and/or symptoms were reported regarding the genitourinary system. Derm: No deficits noted. Musculoskeletal: Reports weakness in right knee and left knee. Historical: - Allergies: 09:41 Amoxicillin; bp 09:41 Codeine; bp 09:41 Demerol; bp 09:41 Morphine; bp 09:41 Hvlzsoz-Onl-Iml Reductase Inhibitors; bp - Immunization history:: Adult Immunizations up to date. - Social history:: Smoking status: Patient denies any tobacco usage or history of. Screenin:42 Abuse screen: Denies threats or abuse. Denies injuries from another. Nutritional bp screening: No deficits noted. Tuberculosis screening: No symptoms or risk factors identified. Fall Risk None identified. Assessment: 09:42 General: SEE TRIAGE NOTE. bp 10:44 Reassessment: No changes from previously documented assessment. Patient and/or family bp updated on plan of care and expected duration. Pain level reassessed. 12:18 Reassessment: No changes from previously documented assessment. Patient and/or family bp updated on plan of care and expected duration. Pain level reassessed. 13:36 Reassessment: PT ASSISTED TO COMMODE AND BACK. 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 PT TO TRANSFER TO [facility] VIA AMBULANCE. bp TRANSPORT PENDING. 18:46 Reassessment: PT MISAEL WITH [facility] FOR [facility]. bp Vital Signs: 09:39 BP 149 / 82; Pulse 90; Resp 20; Temp 98; Pulse Ox 95% ; bp 10:40 BP 127 / 72; Pulse 80; Resp 16; Pulse Ox 95% ; bp 12:17 BP 148 / 63; Pulse 84; Resp 16; Pulse Ox 97% ; bp 13:34 BP 142 / 67; Pulse 79; Resp 16; Pulse Ox 94% ; bp 14:30 BP 154 / 79; Pulse 84; Resp 16; Pulse Ox 96% ; bp 15:30 BP 142 / 61; Pulse 82; Resp 16; Pulse Ox 97% ; bp ED Course: 09:39 Patient arrived in ED. bp 09:39 Rubén Maxwell MD is Attending Physician. kdr 09:41 Triage completed. bp 09:41 Arm band placed on. bp 09:42 Patient has correct armband on for positive identification. Bed in low position. Call bp light in reach. Side rails up X2. 10:14 Clayton Urban, JANINE is Primary Nurse. bp 10:40 Inserted saline lock: 22 gauge in right forearm, using aseptic technique. Blood bp collected. 11:57 Knee Left 2 View XRAY In Process Unspecified. EDMS 11:57 Knee Right 2 View XRAY In Process Unspecified. EDMS 11:57 Pelvis XRAY In Process Unspecified. EDMS 18:47 No provider procedures requiring assistance completed. IV discontinued, intact, bp bleeding controlled, No redness/swelling at site. Pressure dressing applied. Administered Medications: No medications were administered Medication: 09:42 VIS not applicable for this client. bp Outcome: 14:49 Discharge ordered by . kdr 18:47 Discharged to Rehab Facility bp 18:47 Condition: stable 18:47 Instructed on the need for transfer. 18:47 Patient left the ED. bp Signatures: Dispatcher [employer] Rubén Zapata MD MD kdr Peltier, Brian RN RN bp Corrections: (The following items were deleted from the chart) 12:18 10:40 BP 127 / 7; Pulse 80bpm; Resp 16bpm; Pulse Ox 95%; bp bp
--- NOTE | 2022-10-30 14:50 | EDPHYS ---
Physician Documentation [facility] Name: Viky Willingham Age: 87 yrs Sex: Female : 1935 Arrival Date: 10/30/2022 Time: 09:39 Bed 2 Private MD: ED Physician Rubén Maxwell HPI: 10/30 10:25 This 87 yrs old Female presents to ER via EMS with complaints of Weakness and bilateral kdr knee pain. 10:25 Patient states this morning she was attempting to get up and get dressed when she was kdr trying to pull her clothes on. During that attempt, she tried to bear weight on her left knee which subsequently gave way. She states that this has been happening over the past few weeks. She had seen Dr. Ng a week or so ago for the same problem. He had ordered some x-rays (which have not been done yet). Patient again fell this morning but denies any injury specifically no torso or head and neck injury. She denies LOC.. Onset: The symptoms/episode began/occurred gradually, 2 week(s) ago. Severity of symptoms: At their worst the symptoms were mild moderate incapacitating in the emergency department the symptoms are unchanged. The patient has experienced similar episodes in the past, a few times. The patient has been recently seen by a physician: Dr. Ng. Historical: - Allergies: 09:41 Amoxicillin; bp 09:41 Codeine; bp 09:41 Demerol; bp 09:41 Morphine; bp 09:41 Ubusnjw-Ttn-Fzr Reductase Inhibitors; bp - Immunization history:: Adult Immunizations up to date. - Social history:: Smoking status: Patient denies any tobacco usage or history of. ROS: 10:25 Constitutional: Negative for fever, chills, and weight loss, Eyes: Negative for injury, kdr pain, redness, and discharge, Neck: Negative for injury, pain, and swelling, Cardiovascular: Negative for chest pain, palpitations, and edema, Respiratory: Negative for shortness of breath, cough, wheezing, and pleuritic chest pain, Abdomen/GI: Negative for abdominal pain, nausea, vomiting, diarrhea, and constipation, Back: Negative for injury and pain, : Negative for injury, bleeding, discharge, and swelling, Skin: Negative for injury, rash, and discoloration, Neuro: Negative for headache, weakness, numbness, tingling, and seizure activity. Psych: Negative for depression, anxiety, suicide ideation, homicidal ideation, and hallucinations, Allergy/Immunology: Negative for hives, rash, and allergies, Endocrine: Negative for neck swelling, polydipsia, polyuria, polyphagia, and marked weight changes, Hematologic/Lymphatic: Negative for swollen nodes, abnormal bleeding, and unusual bruising. 10:25 MS/extremity: Positive for pain. 10:25 Neuro: Positive for weakness, of the right leg and left leg. Exam: 10:25 Constitutional: This is a well developed, well nourished patient who is awake, alert, kdr and in no acute distress. Head/Face: Normocephalic, atraumatic. Eyes: Pupils equal round and reactive to light, extra-ocular motions intact. Lids and lashes normal. Conjunctiva and sclera are non-icteric and not injected. Cornea within normal limits. Periorbital areas with no swelling, redness, or edema. ENT: Nares patent. No nasal discharge, no septal abnormalities noted. Tympanic membranes are normal and external auditory canals are clear. Oropharynx with no redness, swelling, or masses, exudates, or evidence of obstruction, uvula midline. Mucous membranes moist. Neck: Trachea midline, no thyromegaly or masses palpated, and no cervical lymphadenopathy. Supple, full range of motion without nuchal rigidity, or vertebral point tenderness. No Meningismus. Chest/axilla: Normal chest wall appearance and motion. Nontender with no deformity. No lesions are appreciated. Cardiovascular: Regular rate and rhythm with a normal S1 and S2. No gallops, murmurs, or rubs. Normal PMI, no JVD. No pulse deficits. Respiratory: Lungs have equal breath sounds bilaterally, clear to auscultation and percussion. No rales, rhonchi or wheezes noted. No increased work of breathing, no retractions or nasal flaring. Abdomen/GI: Soft, non-tender, with normal bowel sounds. No distension or tympany. No guarding or rebound. No evidence of tenderness throughout. Back: No spinal tenderness. No costovertebral tenderness. Full range of motion. Skin: Warm, dry with normal turgor. Normal color with no rashes, no lesions, and no evidence of cellulitis. MS/ Extremity: Pulses equal, no cyanosis. Neurovascular intact. Full, normal range of motion. Neuro: Awake and alert, GCS 15, oriented to person, place, time, and situation. Cranial nerves II-XII grossly intact. Motor strength 5/5 in all extremities. Sensory grossly intact. Cerebellar exam normal. Normal gait. 10:25 Musculoskeletal/extremity: Extremities: grossly normal except: noted in the right leg and left knee: decreased ROM, pain, There is no evidence of Vital Signs: 09:39 BP 149 / 82; Pulse 90; Resp 20; Temp 98; Pulse Ox 95% ; bp 10:40 BP 127 / 72; Pulse 80; Resp 16; Pulse Ox 95% ; bp 12:17 BP 148 / 63; Pulse 84; Resp 16; Pulse Ox 97% ; bp 13:34 BP 142 / 67; Pulse 79; Resp 16; Pulse Ox 94% ; bp 14:30 BP 154 / 79; Pulse 84; Resp 16; Pulse Ox 96% ; bp 15:30 BP 142 / 61; Pulse 82; Resp 16; Pulse Ox 97% ; bp MDM: 10:25 Counseling: I had a detailed discussion with the patient and/or guardian regarding: the kdr historical points, exam findings, and any diagnostic results supporting the discharge/admit diagnosis, lab results, radiology results, the need for outpatient follow up. 14:49 Patient medically screened. kdr 17:04 Data reviewed: vital signs, nurses notes, lab test result(s), radiologic studies. kdr Physician consultation:. 10/30 09:55 Order name: CBC with Diff; Complete Time: 11:50 kdr 10/30 09:55 Order name: Comprehensive Metabolic Panel; Complete Time: 11:50 kdr 10/30 09:55 Order name: Knee Left 2 View XRAY; Complete Time: 13:32 kdr 10/30 09:55 Order name: Knee Right 2 View XRAY; Complete Time: 13:32 kdr 10/30 09:55 Order name: Pelvis XRAY; Complete Time: 13:32 kdr Administered Medications: No medications were administered Disposition Summary: 10/30/22 14:49 Discharge Ordered Location: Other kdr Problem: an ongoing problem kdr Symptoms: are unchanged kdr Condition: Stable kdr Diagnosis - Weakness kdr - History of falling kdr - Fall on same level, unspecified kdr - Discharge to [facility] kdr Followup: kdr - With: Private Physician - When: Upon discharge from the Emergency Department - Reason: Discharge Instructions: - Discharge Summary Sheet kdr - Fatigue kdr - Fall Prevention in the Home, Adult, [id number] kdr - Weakness, [id number] kdr - Fall Prevention in Hospitals, Adult kdr Forms: - SBAR form bd - Medication Reconciliation Form kdr - Thank You Letter kdr Signatures: Dispatcher [employer] EDRubén Gaming MD MD kdr Clayton Urban RN RN bp Corrections: (The following items were deleted from the chart) 14:19 13:39 Knee Immobilizer ordered. kdr bp
[2022-10-30 20:42] VITALS: TEMP 98
[2022-10-30 21:01] VITALS: BP 142/61; O2SAT 97
== END 2022-10-30 18:47 | disposition home or self-care (01) ==
LOC: ER 09:37
DX: R53.1 Weakness (principal); W18.30XA Fall on same level, unspecified, initial encounter; Z91.81 History of falling; Z88.1 Allergy status to other antibiotic agents; Z88.5 Allergy status to narcotic agent; Z88.8 Allergy status to other drugs, medicaments and biological substances
CPT/HCPCS: 36415; 72170; 80053; 85025; 99284